=== PATIENT | female | born 1995 | race American Indian/Alaskan Native ===

== ENCOUNTER 2022-02-17 11:46 | Emergency (ER) | payer MEDICAID ==
[2022-02-17 12:04] VITALS: BP 134/74
--- NOTE | 2022-02-17 12:20 | Emergency Department Report ---
Minor Respiratory - HPI Chief Complaint: Dental/Oral Stated Complaint: SWOLLEN CHEEKS/ COLD SYM Time Seen by Provider: 02/17/22 12:19 Duration: 5 Days Pain Location: Facial, Throat, Nose, Ear Severity: mild Minor Respiratory: Yes Rhinorrhea, Yes Sore Throat, Yes Able to Tolerate Fluids, Yes Ear Pain, Yes Cough, No Sick Contacts, No Hemoptysis, No Chest Pain, No Shortness of Breath, No Fever Other History: Patient is a 26-year-old female that comes to the ER with vague complaints of sore throat and chills. She states that it hurts when she swallows. She states that her glands hurt. And then she adds that her teeth are hurting. She endorses chills but no fever. She denies any coughing. She denies any abdomen pain, dysuria, discharge or back pain. She is ambulatory, nontoxic [id number] on arrival to ER. She is not immunized for COVID. ED Review of Systems ROS: Stated complaint: SWOLLEN CHEEKS/ COLD SYM Other details as noted in HPI Comment: All other systems reviewed and negative ED Past Medical Hx - Past Medical History Previous Medical History?: No - Surgical History Past Surgical History?: No - Family History Family history: no significant - Social History Smoking Status: Never Smoker Substance Use Type: None - Medications Home Medications: Home Medications Medication Instructions Recorded Confirmed Last Taken Type Amoxicillin [Trimox CAP] 500 mg PO BID #20 capsule 02/17/22 Unknown Rx Ibuprofen [Motrin] 800 mg PO Q8HR PRN #30 tablet 02/17/22 Unknown Rx Minor Respiratory Exam - Exam General: Vital signs noted. No distress. Alert and acting appropriately. HEENT: Yes Pharyngeal Erythema, Yes Pharyngeal Exudates, Yes Moist Mucous Membranes, No Rhinorrhea, No Conjuctival Injection, No Frontal Tenderness, No Maxillary Tenderness Ear: Neither TM Bulge, Neither TM Erythema, Neither EAC Pain, Neither EAC Discharge Neck: Yes Supple, No Adenopathy Lungs: Yes Good Air Exchange, No Wheezes, No Ronchi, No Stridor, No Cough, No Labored Respirations, No Retractions, No Use of Accessory Muscles, No Other Abnormal Lung Sounds Heart: Yes Regular, No Murmur Abdomen: Yes Normal Bowel Sounds, No Tenderness, No Peritoneal Signs Skin: No Rash, No Edema Neurologic: Alert and oriented, no deficits. Musculoskeletal: Unremarkable. ED Course Vital Signs 02/17/22 12:02 Temperature 99.0 F Pulse Rate 98 H Respiratory 14 Rate Blood Pressure 134/74 O2 Sat by Pulse 98 Oximetry ED Medical Decision Making - Medical Decision Making Vital Signs 02/17/22 12:02 Temperature 99.0 F Pulse Rate 98 H Respiratory 14 Rate Blood Pressure 134/74 O2 Sat by Pulse 98 Oximetry Patient being treated for exudative pharyngitis. Will DC home on amoxicillin. Patient has no abscess, trismus, she is controlling secretions, she is taking p. o. Patient being discharged home with discharge plan of care including diet, activity medications and follow-up. She verbalizes understanding of plan of care. - Differential Diagnosis URI Critical care attestation.: If time is entered above; I have spent that time in minutes in the direct care of this critically ill patient, excluding procedure time. ED Disposition Clinical Impression: URI (upper respiratory infection) Pharyngitis Qualifiers: Pharyngitis/tonsillitis etiology: other specified organisms Qualified Code(s): J02.8 - Acute pharyngitis due to other specified organisms Disposition: 01 HOME / SELF CARE / HOMELESS Is pt being admited?: No Does the pt Need Aspirin: No Condition: Stable Instructions: Pharyngitis Additional Instructions: STAY WELL HYDRATED WITH WATER MEDS ORDERED TODAY FOLLOW UP WITH PCP NEXT WEEK TO BE SURE YOU ARE GETTING BETTER REFERRAL BELOW Prescriptions: Ibuprofen [Motrin] 800 mg PO Q8HR PRN #30 tablet PRN Reason: Pain, Moderate (4-6) Amoxicillin [Trimox CAP] 500 mg PO BID #20 capsule Referrals: DEVAN GALAVIZ MD [Staff Physician] - 3-5 Days Forms: Work/School Release Form(ED) Time of Disposition: 12:21
== END 2022-02-17 12:30 | disposition home or self-care (01) ==
LOC: ED 11:46
DX: J06.9 Acute upper respiratory infection, unspecified (principal); J02.9 Acute pharyngitis, unspecified
CPT/HCPCS: 99282